=== PATIENT | male | born 1960 | race Caucasian/White ===

== ENCOUNTER 2017-02-14 18:38 | Emergency (ER) | payer OTHER ==
[~2017-02-14] VITALS: Ht 175.3 cm; Wt 90.7 kg
[~2017-02-14 18:38] MED LIST: AUGMENTIN 875875 M1 PO; NOHOMEMEDICATIONS; VICODIN 5-5001 EACH PO
[2017-02-14 19:07] LABS: CALCIUM 9.1 mg/dL (8.5-10.1); CREATININE 0.8 mg/dL (0.7-1.3)
[2017-02-14 20:11] VITALS: BP 176/116
== END 2017-02-14 20:10 | disposition home or self-care (01) ==
LOC: ER 18:38
PROVIDERS: Emergency Medicine
DX: R25.2 Cramp and spasm (principal); I10 Essential (primary) hypertension

== ENCOUNTER 2019-09-15 15:58 | Inpatient (IN) | payer OTHER ==
[~2019-09-15] VITALS: Ht 172.7 cm; Wt 71.4 kg
--- NOTE | ~2019-09-15 | EEG ---
[facility] [place] [address] [place] [address] ELECTROENCEPHALOGRAM Name: JOSE RALPH Room #: 351-P ADM IN M.R.#: [id number] Admission: 09/15/19 Attend Phys: Tri Yates MD Discharge: Date of : 62 Report #: [id number] THIS REPORT FOR: //name// CC: Tri Yates [facility] physician/PCP This patient is admitted with altered mental status. EEG is being done to further evaluate any etiology for that. The patient's EEG was done by placing the electrodes by standard 10-20 system of electrode placement. Both referential and sequential montages were used for recording. Background activity in this patient's EEG is about 10 Hz and 20 microvolt on the right side, the activity is asymmetrical. There is slowing on the left side. Some of the slowing is because of eye movements. Eye electrodes were placed and that did confirm that part of this is artifact, but part of it is real slowing, especially in the left temporoparietal area. No active epileptiform activity was noticed. The patient did become drowsy and that is associated with bilateral slowing. IMPRESSION: This is an abnormal EEG because it is asymmetrically slow on the left side. It is recommended that the patient be further worked up for any left hemispheric structural lesions. No active epileptiform activity was noticed during this record. Thank you very much for this referral. By: 1704 1810 Shaq Rice MD /saulo
[2019-09-15 16:20] VITALS: BP 127/101
[2019-09-15 16:39] LABS: ABSOLUTE NEUTROPHILS 4.3 thou/uL (1.4-8.2); BASOPHILS 0.4 % (0.0-2.0); HEMATOCRIT 52.5 % (42.0-52.0); HEMOGLOBIN 17.2 gm/dL (14.0-18.0); LYMPHOCYTES 32.4 % (24.0-44.0); MCH 27.9 pg (26.0-34.0); MCHC 32.8 g/dL (28.0-37.0); MONOCYTES 10.7 % (1.0-8.0); PLATELET COUNT 293 thou/uL (150-400); POLYS 54.5 % (36.0-66.0); RBC 6.18 mil/uL (4.50-6.00); RDW 16.2 % (10.5-14.5); WBC 7.9 thou/uL (4.0-11.0)
[2019-09-15 16:49] LABS: CALCIUM 9.1 mg/dL (8.5-10.1); CREATININE 0.9 mg/dL (0.7-1.3); POTASSIUM 4.3 mmol/L (3.5-5.1)
[2019-09-15 16:55] LABS: ALBUMIN 3.5 g/dL (3.4-5.0); TOTAL BILIRUBIN 0.9 mg/dL (<0.1-1.0); TOTAL PROTEIN 8.9 g/dL (6.4-8.2)
[2019-09-15 18:15] LABS: URINE BILIRUBIN NEGATIVE (Negative); URINE BLOOD NEGATIVE (Negative); URINE CLARITY CLEAR; URINE COLOR YELLOW; URINE GLUCOSE-RANDOM* NEGATIVE (Negative); URINE KETONES NEGATIVE (Negative); URINE LEUKOCYTES-REFLEX NEGATIVE (Negative); URINE NITRITE-REFLEX NEGATIVE (Negative); URINE PROTEIN (DIPSTICK) NEGATIVE (Negative); URINE UROBILINOGEN 0.2 E.U./dl (0.2-1.0)
[2019-09-15 18:26] VITALS: BP 171/118
[2019-09-15 19:11] VITALS: BP 153/105
[2019-09-16 00:41] VITALS: BP 131/91
--- NOTE | 2019-09-16 03:08 | NUR ---
PT ARRIVED TO ROOM 351 FROM ER, HR AFIB WITH RAT 80 TO 90'S WITH CARDIZEMM GTT @ 15ML/HR, LOADING DOSE OF VANCO STARTED, LAB HERE AND NEW COVID SENT TO ER AFTER 1ST TEST LOST, BP ELEVATED, NO C/O PAIN, PT ORIENTED TO NAME AND PLACE WITH EXPRESSIVE APHASIA HAS DIFFICULT TIME FINDING WORDS BECOMES VERY AGGITATED WITH MORE QUESTIONS, CONSULTS CALLED TO INFECTIOUS DISEASE AND CARDIOLOGY, THEY WILL SEE IN AM, PTS S.O. UPDATED ON CONDITION AND GIVEN PRIVACY CODE #, PT IN ISOLATION, EDUCATED AND GIVEN MEAL, WILL CON'T TO MONITOR PER PPOC.
[2019-09-16 03:55] LABS: ANION GAP 11 mmol/L (7-16); BUN 17 mg/dL (7-18); CALCIUM 8.1 mg/dL (8.5-10.1); CHLORIDE 106 mmol/L (98-107); CHOLESTEROL 88 mg/dL (<200); CO2 21 mmol/L (21-32); CREATININE 0.8 mg/dL (0.7-1.3); GLUCOSE 110 mg/dL (74-106); HDL CHOLESTEROL 26 mg/dL (>40); LDL CHOLESTEROL 48 mg/dL (<100); POTASSIUM 4.5 mmol/L (3.5-5.1); SODIUM 138 mmol/L (136-145); TC:HDL 3.4 Ratio (Not establshd); TRIGLYCERIDE 74 mg/dL (<150); VLDL 15 mg/dL (<40)
[2019-09-16 04:00] VITALS: BP 135/86
[2019-09-16 04:29] LABS: SERUM ASSESSMENT Slight Lipemia
[2019-09-16] MEDS ORDERED: BIKTARVY 50-201 EACH PO (05:07)
--- NOTE | 2019-09-16 08:00 | EKG ---
[facility] [place] [address] ELECTROCARDIOGRAM REPORT Name: LAWRENCEBENITAJOSE Angeles Room #: 351-P ADM IN M.R.#: [id number] Admission: 09/15/19 Attend Phys: Tri Yates MD Discharge: Date of : 62 Report #: [id number] THIS REPORT FOR: cc: FAM - No family physician/PCP FAM - No family physician/PCP Leandro Romano MD [facility] THIS REPORT FOR: //name// [facility] ED Test Date: 2019-09-15 Test Time: 17:25:23 Pat Name: JOSE RALPH Department: Room: [facility] Gender: M Fire Hazard Inspector: LAURIE : 1960 Requested By: Michael Ye Order Number: [id number] MD: Leandro Romano Measurements Intervals [place] Rate: 102 P: OK: QRS: 103 QRSD: 89 T: 76 QT: 358 QTc: 467 Interpretive Statements Atrial fibrillation Right axis deviation Nonspecific ST and T wave abnormality No previous ECG available for comparison Electronically Signed On 09-16-2019 7:58:15 CDT by Leandro Romano [email or web address] <ELECTRONICALLY SIGNED> By: Leandro Romano MD, FACC 09/16/19 0758 1725 1725 Leandro Romano MD, LOCATED WITHIN [facility] /EPI
--- NOTE | 2019-09-16 11:55 | NUR ---
INITIAL ASSESSMENT: OLGA reviewed chart and spoke with nursing and attending physician. Pt was admitted from home due to AMS/a-fib. Pt is in Enhanced Isolation to r/o COVID-19. Results pending at this time. Pt with hx of HIV. OLGA spoke with pt via phone. Pt was very short with his answers. Pt states that he lives at home with family. Prior to admission, pt was not using and DME. Pt states he has a PCP, but does not know the name of his physician or where the physician office is located. Pt reports he does not work, but thinks he may have health insurance. OLGA spoke with pt's s/o, Marialuisa, via phone to obtain info. Marialuisa states that pt goes to [facility] in the [facility]. Pt sees Rubi Sosa NP at [facility]. Per Marialuisa, pt has Home State or [place]-Medicaid. Pt normally goes to the [facility] in [place]. Pt has not been taking his antivirals because his physician's office have not called the pharmacy to verify pt's prescription for Biktarvy. Marialuisa states pt is normally independent with ADLs. Plan is for pt to discharge home when medically stable. Pt's family will be able to provide transportation. OLGA is following to assist as needed with discharge planning.
[2019-09-16 16:00] VITALS: BP 148/76
--- NOTE | 2019-09-16 17:42 | NUR ---
Dr. Elias in agreement to stop enhanced precautions and to transfer patient to 2N. Nursing trust evaluation supervisor informed patient needs to be on 2N.
--- NOTE | 2019-09-16 19:30 | NUR ---
PATIENT HAS BEEN QUITE RESTLESS THROUGH THE DAY. KEEP ATTEMPTING TO LEAVE THE BED. NOT EASILY REDIRECTED. LORAZEPAM ADMININSTERED AND IT SEEMED TO HAVE HAD THE OPPOSITE EFFECT PATIENT BECAME EVEN MORE RESTLESS. HALDOL ADMININSTERED AND IT WAS EFFECTIVE SHE IS NOW SLEEPING. RESPIRATIONS ARE LABORED WHEN SHE IS ATTEMPTING TO LEAVE THE BED. WILL CONT WITH PLAN OF CARE.
--- NOTE | 2019-09-16 19:42 | NUR ---
PATIENT SLEPT MOST OF THE MONRING AFTER HAVING BREAKFAST. THEN HE WOKE UP AND WAS LESS CONFUSED. HE HAD A SHOWER, AND COULD ANSWER QUESTIONS PROPERLY. HE DOES HOWVER HAVE LAPSED MEMORY. HE COULD NOT REMEMBER THE 'S PHONE NUMBER AND COULD NOT HAVE REMEMBER WHAT DAY IT WAS OR WHO THE PRESIDENT IS. GAIT IS STAEDY WHEN HE AMBULATES. WILL CONT WITH PLAN OF CARE.
[2019-09-16 19:44] VITALS: BP 172/119
[2019-09-16 22:03] LABS: AMP/METHAMP Negative (Negative); BARBITURATES Negative (Negative); BENZODIAZEPINES Negative (Negative); COCAINE Negative (Negative); METHADONE Negative (Negative); OPIATES Negative (Negative); PCP Negative (Negative)
[2019-09-17] VITALS (7 sets, daily range): BP systolic 130–148; BP diastolic 86–109
[2019-09-17 00:07] LABS: GLYCOHEMOGLOBIN (HGB A1C) 5.9 % (4.8-5.6)
--- NOTE | 2019-09-17 01:09 | NUR ---
PT HAS BEEN RELATIVELY AGREEABLE THIS ENTIRE SHIFT, PT APPEARS DAZED AT TIMES IF THE WORD IS AT THE TIP OF THE TONGUE BUT UNABLE TO GET IT OUT. PT IS STILL ALERT AND ORIENTED TO PERSON AND PLACE. PT DOES USE THE CALL LIGHT INAPPROPERIATELY BUT NOT IN AN EXCESSIVE WAY AT ALL. URINE TOXICOLOGY CAME BACK NEGATIVE, PT WAS PERSONALLY SEEN BY . IT IS UNCLEAR WHETHER THE PT IS ON ISOLATION PRECAUTIONS AT THIS TIME PER REPORT. PT'S VITAL SIGNS ARE NORMAL. HR MAINTAINING AROUND 90-110s. SPIKES IN HR ARE NOTABLE WHEN PT IS AMBULATING OR EXERTING ENERGY. IT IS OBSURD THE FREQUENCY AT WHICH THE PATIENT EATS/DRINKS. EVERY TIME THE RN GOES IN PT'S PRIMARY CONCERN IS EATING.. OTHER THAN THAT THE PT IS RELATIVELY CALM, COOPERATIVE, AND CONSOLABLE. WILL CONTINUE TO PROVIDE A SAFE SPACE FOR THIS PT HE IS RECOVERING TO BASELINE COGNITIVE LEVEL.
[2019-09-17 03:07] LABS: GLYCOHEMOGLOBIN (HGB A1C) 5.8 % (4.8-5.6)
[2019-09-17 09:29] LABS: CALCIUM 8.5 mg/dL (8.5-10.1); CREATININE 0.9 mg/dL (0.7-1.3); POTASSIUM 4.1 mmol/L (3.5-5.1)
--- NOTE | 2019-09-17 09:59 | NUR ---
SPOKE WITH DR KNIGHT SHE CONFIRMED THAT FLUIDS WERE DCD. ISOLATION DCD ALSO SPOKE WITH JOHANNE MADRIGAL WHO STATED ISO WAS DCD PT TO BE MOVED TO [address] [place] [address] SOON BED AVAILABLE. PT ALERT XS 3 ATE 2 BREAKFASTS IS DRINKING FLUIDS AND URINATING CLEAR YELLOW URINE ADEQUATE AMOUNT. SPOKE WITH PATIENT'S AND UPDATED HER ON PATIENT'S CONDITION AND PROGRESS.
--- NOTE | 2019-09-17 10:32 | NUR ---
PATIENT LEFT UNIT IN W/C WITH FACEMASK ON PT TO HAVE MRI OF BRAIN DONE ORDERED.
--- NOTE | 2019-09-17 12:07 | NUR ---
SW reviewed chart and spoke with nursing and attending physician. Pt's COVID-19 test came back negative. Pt to be transferred to CCU when a bed is available. Pt off the unit having MRI. [employer] to follow up with pt regarding Medicaid application. OLGA is following to assist as needed with discharge planning.
--- NOTE | 2019-09-17 12:50 | 2DMMODE ---
[facility] [place] [address] 2 D/M-MODE ECHOCARDIOGRAM Name: JOSE RALPH Room #: 351-P ADM IN .R.#: [id number] Admission: 09/15/19 Attend Phys: Tri Yates MD Discharge: Date of : 62 Report #: [id number] THIS REPORT FOR: cc: EPHRAIM - No family physician/PCP FAM - No family physician/PCP Leandro Romano MD [facility] ~ APPROVED REPORT Study performed: 09/17/2019 12:03:51 EXAM: Comprehensive 2D, Doppler, and color-flow Echocardiogram Patient Location: Bedside Room #: 351 Status: routine BSA: 1.80 HR: 97 bpm BP: 148/109 mmHg Rhythm: Atrial Fibrillation Other Information Study Quality: Good Indications Atrial Fibrillation Dyspnea Hypertension/HDD 2D Dimensions RVDd: 42.25 mm IVSd: 10.55 (7-11mm) LVOT Diam: 23.87 (18-24mm) LVDd: 50.47 mm PWd: 10.94 (7-11mm) Ascending Ao: 36.60 (22-36mm) LVDs: 41.09 (25-40mm) Aortic Root: 35.81 mm IVC: 18.00 mm Volumes Left Atrial Volume (Systole) Single Plane 4CH: 65.52 mL Single Plane 2CH: 75.04 mL LA ESV Index: 41.00 mL/m2 Aortic Valve AoV Peak Anival.: 1.10 m/s AO Peak Gr.: 4.88 mmHg LVOT Max P.36 mmHg LVOT Max V: 0.77 m/s [facility] [address] [address] 2 D/M-MODE ECHOCARDIOGRAM Name: JOSE RALPH Room #: 351-P [facility] IN [facility]#: [id number] Admission: 09/15/19 Attend Phys: Alejandro Marks Discharge: Date of : 62 Report #: [id number] CED Vmax: 3.11 cm2 Pulmonary Valve PV Peak Anival.: 0.65 m/s PV Peak Gr.: 1.67 mmHg Tricuspid Valve TR Peak Anival.: 2.40 m/s TR Peak Gr.: 23.02 mmHg PA Pressure: 28.00 mmHg Left Ventricle The left ventricle is normal size. There is global hypokinesis of the left ventricle. There is normal left ventricular wall thickness. Left ventricular systolic function is moderately decreased. LVEF 35-40%. This study is not technically sufficient to allow evaluation of the LV diastolic function due to atrial fibrillation. Right Ventricle Right ventricle is at the upper limits of normal. The right ventricular systolic function is normal. Atria Left atrium is dilated. Right atrium is dilated. Aortic Valve The aortic valve is normal in structure. No aortic regurgitation is present. There is no aortic valvular stenosis. Mitral Valve The mitral valve is normal in structure. Mild to moderate mitral regurgitation. No evidence of mitral valve stenosis. Tricuspid Valve The tricuspid valve is normal in structure. There is mild tricuspid regurgitation. Estimated PAP 28 mmHg. There is no pulmonary hypertension. Pulmonic Valve The pulmonary valve is normal in structure. Trace pulmonic regurgitation. Great Vessels The aortic root is normal in size. IVC is normal in size and collapses >50% with inspiration. Pericardium [facility] [address] [place] [address] 2 D/M-MODE ECHOCARDIOGRAM Name: JOSE RALPH Room #: 351-P [facility] IN ..#: [id number] Admission: 09/15/19 Attend Phys: Alejandro Marks Discharge: Date of : 62 Report #: [id number] There is no pericardial effusion. <Conclusion> Left ventricular systolic function is moderately decreased. There is global hypokinesis of the left ventricle. LVEF 35-40%. Both atria are dilated. The aortic valve is normal in structure. No aortic regurgitation is present. The mitral valve is normal in structure. Mild to moderate mitral regurgitation. There is mild tricuspid regurgitation. Estimated pulmonary artery pressure 28 mmHg. There is no pericardial effusion. <ELECTRONICALLY SIGNED> By: Leandro Romano MD, [facility] 09/17/19 1248 1248 1248 Leandro Romano MD, FACC /INF
--- NOTE | 2019-09-17 13:15 | NUR ---
CALLED DR SAUL NEURO AND READ RESULTS OF MRI ALSO CALLED MARICEL JENKINS ANP PER DR IBARRA. DR SAUL TO DC ENOXAPRIN AND START ELIQUIS. ALSO DR KNIGHT WANTS DEBRA CARODID DOPPLER TEST DONE
--- NOTE | 2019-09-17 17:01 | NUR ---
PT RESTING IN BED IS HAVING DOPPLER XS 2 DONE AT THIS TIME. PT STATES NO PAIN. AWAITING DINNER. PT TO MOVE TO [address] [place] [address] SOON ROOM IS READY. CONT ON TELE MONITORING. PLEASANT AND COOPERATIVE WITH CARE.
--- NOTE | 2019-09-17 18:26 | NUR ---
REPORT GIVEN TO 2-N NURSE CHASE AND THEN PATIENT TRANSFERRED TO ROOM 216. ALL BELONGINGS TRANSFERRED. PT HAD DINNER BEFORE TRANSFER. PT HAD DOPPLER DONE BEFORE TRANSFER. CALLED WHEN PATIENT WAS TRANSFERRED. PATIENT SPOKE WITH HIS . TELE MONITOR REMOVED BEFORE TRANSFER.
[2019-09-18 03:11] VITALS: BP 145/90
--- NOTE | 2019-09-18 03:23 | NUR ---
ASSUMED PT CARE AROUND 1930. VSS. AXOX3. CALM AND COOERATIVE TO CARE. NO S/S ACUTE DISTRESS NOTED OR REPORTED AT THIS TIME. WILL CONT TO MONITOR FOR ANY CHANGES IN CONDITION.
[2019-09-18 05:58] LABS: POTASSIUM 4.5 mmol/L (3.5-5.1)
[2019-09-18 06:08] LABS: THYROID STIMULATING IG 2.45 IU/L (0.00-0.55)
[2019-09-18 08:00] VITALS: BP 152/96
[2019-09-18 08:08] LABS: HEPATITIS B SURFACE AG Negative (Negative); HEPATITIS C VIRUS AB <0.1 (0.0-0.9)
--- NOTE | 2019-09-18 11:13 | HC ---
[facility] [place] [address] [place] [address] CONSULTATION Name: JOSE RALPH Room #: 216-P ADM IN M.R.#: [id number] Admission: 09/15/19 Attend Phys: Tri Yates MD Discharge: Date of : 62 Report #: [id number] THIS REPORT FOR: cc: EPHRAIM Meade family physician/PCP EPHRAIM Meade family physician/PCP Boogie Lynn MD ~ CC: Tri YE physician/PCP DATE OF SERVICE: 09/17/2019 ENDOCRINE CONSULTATION CONSULTING PHYSICIAN: Dr. Lopez. REASON FOR CONSULTATION: Hyperthyroidism. HISTORY OF PRESENT ILLNESS: This is a 59-year-old male patient whose medical background is significant for multiple medical issues including hypertension, HIV positive state who presented a few days ago with complaints of weakness, confusion and overall fatigue. The patient was admitted for further care and monitoring and went on COVID-19 rule out protocol. During his admission, the patient was evaluated with multiple laboratory testing including thyroid function studies and was found to have hyperthyroidism. On further questioning, the patient denies having had any prior knowledge of thyroid disease and does not recall having been actively treated for any thyroid disease. He does, however, point out to the increasing occurrence of palpitations without chest pain, but not tremors. Also, he notes more subjective sense of heat intolerance and sweating. He has lost 20 pounds over the past several months unintentionally. He has been a bit more anxious. The patient does not have active difficulties with neck fullness, pain, compressive symptoms or voice changes. Interestingly, the patient has a background of atrial fibrillation as well. REVIEW OF SYSTEMS: CONSTITUTIONAL: Fatigue, tiredness, unexplained weight loss of 20 pounds over the past 3-6 months. No fever. HEENT: Negative for sore throat, sinus pain, ear drainage. PULMONARY: Occasional shortness of breath and cough, but no hemoptysis. CARDIAC: Palpitations, lightheadedness, but not syncope or chest pain. GASTROINTESTINAL: Negative for nausea, vomiting, changes in bowel movement frequency. NEUROLOGY: Negative for loss of consciousness, severe frequent headaches or seizure activity. [facility] [address] [place] [address] CONSULTATION Name: LOREEJOSE Karthik Room #: 216-P [facility] IN .R.#: [id number] Admission: 09/15/19 Attend Phys: Tri Yates MD Discharge: Date of : 62 Report #: [id number] DERMATOLOGY: Negative for rash, ulceration or discoloration. Otherwise, review of systems noncontributory other than those mentioned in HPI. PAST MEDICAL HISTORY: 1. Hypertension. 2. Human immunodeficiency virus positive. 3. Atrial fibrillation. OUTPATIENT MEDICATIONS: None at home. ALLERGIES: No known drug allergies. FAMILY HISTORY: Noncontributory. SOCIAL HISTORY: The patient denies the active use of alcohol or illicit drugs. He does smoke daily. PHYSICAL EXAMINATION: GENERAL: male patient who is not in apparent pain or distress, but appears somewhat tired. VITAL SIGNS: Blood pressure 148/109 mmHg, heart rate is 85 beats per minute, respirations 20 per minute, temperature 36.6 degrees Celsius. PSYCH: The patient is lying in bed, appears tired, but not in acute pain or distress. HEENT: Anicteric sclerae. Intact ocular motions. NECK: Supple, without JVD, carotid bruits, I do not appreciate thyromegaly. CHEST: Noted for moderate entry bilaterally with scattered rales, but not rhonchi. HEART: Irregularly irregular without murmurs or gallops. ABDOMEN: Soft, lax. No guarding. Active bowel sounds. EXTREMITIES: Lower extremity exam is negative for ankle edema, skin breaks or ulcerations. NEUROLOGIC: Awake, alert and oriented to time, place and person. The remainder of his examination is nonfocal. PSYCHIATRIC: Interactive. Normal mood and affect. LABORATORY DATA: Initial blood glucose was at 192, later dropped to 121. Otherwise, sodium 134, potassium 4.1, chloride 101, CO2 of 25, anion gap 8, BUN 21, creatinine 0.9, AST 29, total bilirubin 0.9, calcium 8.5, alkaline phosphatase 219, ALT 30, total protein 8.9, albumin 3.5, EGFR 87. Lactic acid 1.1, troponin 0.67. Total cholesterol 88, triglycerides 74, HDL 26, LDL 48. BNP 9222. Free T4 2.4. Free T3 7.44. CRP 19.2. White blood count 7.9, hemoglobin 17.2, hematocrit 52.5, platelets 293. TSH is undetectable. Vitamin B12 is 441. Hemoglobin A1c is 5.8. An MRI of the head was done and shows evidence of a subacute ischemic infarct in [address] [address] CONSULTATION Name: JOSE RALPH Room #: 216-P [facility] IN M.R.#: [id number] Admission: 09/15/19 Attend Phys: Tri Yates MD Discharge: Date of : 62 Report #: [id number] the left parietal lobe in addition to cerebral white matter signal changes most compatible with chronic microvascular ischemia with a focus of encephalomalacia in the right parietal lobe, most compatible with chronic infarct. A CT scan of the chest was done and was negative for features suggestive of pulmonary embolism, but with mild cardiomegaly and extensive coronary artery calcification. ASSESSMENT AND PLAN: 1. Hyperthyroidism. The patient was found to have significantly suppressed TSH, which was later on showed to associate with significantly elevated free T4 and free T3 collectively pointing out to tangible hyperthyroidism. Clinically, he has experienced symptoms that certainly go along those lines in terms of weight loss, palpitations and heat intolerance. The patient was counseled about these findings as well as about their implication. I would at the present time attempt to identify the etiology behind this hyperthyroidism and in doing so, I have requested serology studies including thyroid stimulating immunoglobulins and thyroid peroxidase antibodies. A thyroid ultrasound might be needed or will be needed as well and I will order that too. In the meantime given the significant elevation of free T4 and the association with atrial fibrillation, I will start methimazole therapy at a dose of 10 mg b.i.d. while we obtain the remaining information that are necessary for his workup. 2. Prediabetes mellitus. The patient had an elevated blood glucose value on presentation, which normalized without intervention. His hemoglobin A1c of 5.8 falls just within the onset of prediabetic range. This would be best addressed by diet and exercise measures going forward. I do not see a need to maintain routine blood glucose monitoring while he is here in the hospital. 3. Confusion, altered mental status. The patient is being worked up for the issue of encephalopathy and Neurology is actively evaluating his condition. A recent MRI was compatible with subacute infarct in the parietal lobe. Further workup and management is as per Neurology. I certainly appreciate this consultation by Dr. Pandhi. <ELECTRONICALLY SIGNED> By: Boogie Lynn MD 09/18/19 1113 1146 1348 Boogie Lynn MD /nt
--- NOTE | 2019-09-18 12:30 | NUR ---
PT ASSESSED AT START OF SHIFT. PT W/ VERY SLOW MENTATION AND FORGETFULNESS. NOT AWARE HE WAS IN THE HOSPITAL. MOVES ALL EXTREMITIES. EATING WELL. NO C/O PAIN. IN AFIB AND HAVING PERIODS OF INCREASED TACHYCARDIA NONSUSTAINED. RATES OVER 160 AT TIMES. CARDIAC MANAGER VALIDATION NOTIFIED AND ORDERS OBTAINED AT THIS TIME TO START CARDIZEM GTT. CARE TRANSFERRED TO DUMBWAITER OPERATOR.
[2019-09-18 12:56] VITALS: BP 133/104
[2019-09-18 13:00] VITALS: BP 139/89
--- NOTE | 2019-09-18 15:22 | NUR ---
Case discussed with the care team. Pt now on cardezim gtt for heart rate control and possible new subacute stroke. Neuro following. Pt's sign other Marialuisa indicates she has submitted documentation along with [place]. [employer] referral is pending. The pt would likely qualify for social security disablity francisco with his hx and new cardiac and neuro dx. [employer] to call Marialuisa to facilitate. The pt was recently released from correction in June and his [place] had [place] prior to his release. Marialuisa indicates that all of his f/u is through [facility]. He was originally denies SS disablity a couple of years ago but would benefit from reapplying due to his current medical issues. Will ask for PT/OT/ST and 5N evals. He is normally indep with gait, adl's and able to converse appropriately.
[2019-09-18 19:24] VITALS: BP 112/86
--- NOTE | 2019-09-18 21:18 | NUR ---
ASSUMED CARE OF PATIENT AT 1300 FROM CARMEN FINLEY. PATIENT'S HEART RATE IN AFIB AND FLUCTUATING FROM 100-180, HR BEGAN TO SUSTAIN IN THE 160'S. CARDIOLOGY CALLED. ORDER STARTED FOR CARDIZEM DRIP. PATIENT STARTED AT 10 AND TITRATED TO 5 AND THEN D/C ALL TOGETHER AT 1650, DUE TO HR IN THE 50'S. NOTED IN MEDITECH. PATIENT DENIES ANY CHEST PAIN. PATIENT TO CONTINUE WITH POC.
[2019-09-19 04:43] VITALS: BP 125/72
--- NOTE | 2019-09-19 07:42 | EKG ---
[facility] [place] [address] ELECTROCARDIOGRAM REPORT Name: LOREEJOSE T Room #: 216-P ADM IN M.R.#: [id number] Admission: 09/15/19 Attend Phys: Tri Yates MD Discharge: Date of : 62 Report #: [id number] THIS REPORT FOR: cc: EPHRAIM - No family physician/PCP EPHRAIM - No family physician/PCP Leandro Romano MD [facility] THIS REPORT FOR: //name// [facility] Test Date: 2019-09-18 Test Time: 10:20:04 Pat Name: JOSE RALPH Department: Room: 216 P Gender: M Hide Tanner: Pratima GREEN : 1960 Requested By: Anuradha Nguyễn Order Number: [id number] MD: Leandro Romano Measurements Intervals [place] Rate: 96 P: ND: QRS: 92 QRSD: 97 T: 176 QT: 330 QTc: 417 Interpretive Statements Atrial fibrillation Borderline right axis deviation Repol abnrm suggests ischemia, anterolateral Compared to ECG 09/15/2019 17:25:23 ST and T wave abnormality is more pronounced Electronically Signed On 09-19-2019 7:41:09 CDT by Leandro Romano [email or web address] <ELECTRONICALLY SIGNED> By: Leandro Romano MD, [facility] 09/19/19 0741 1020 1020 Leandro Romano MD, FAC /EPI
[2019-09-19 07:50] VITALS: BP 131/96
--- NOTE | 2019-09-19 07:56 | NUR ---
PT SLEEPING ON AND OFF THRU THE NOC, A&OX3, USES URINAL, SHOWERED, VSS, NO C/O PAIN, WILL CON'T TO MONITOR PER PPOC.
[2019-09-19] MEDS ORDERED: METHIMAZOLE10 MG PO (08:24)
[2019-09-19] MEDS ORDERED: LISINOPRIL40 MG PO (08:24)
[2019-09-19] MEDS ORDERED: ASPIR 8181 MG PO (08:24)
[2019-09-19] MEDS ORDERED: LOPRESSOR100 M1 PO (08:24)
[2019-09-19] MEDS ORDERED: ELIQUIS5 MG PO (08:24)
[2019-09-19] MEDS ORDERED: BIKTARVY 50-201 EACH PO (10:37)
[2019-09-19] MEDS ORDERED: KEPPRA 500 MG500 M1 PO (10:37)
[2019-09-19 11:00] VITALS: BP 130/83
[2019-09-19 12:08] LABS: CD3 % 78.3 % (57.5-86.2); CD3 ABSOLUTE 1566 /uL (622-2402); CD4 % 36.9 % (30.8-58.5); CD4 ABSOLUTE 738 /uL (359-1519); CD4:CD8 0.92 (0.92-3.72); CD8 % 39.9 % (12.0-35.5); CD8 ABSOLUTE 798 /uL (109-897)
[2019-09-19 14:00] VITALS: BP 130/83
[2019-09-19 14:08] LABS: SYPHILIS AB Reactive (Non Reactive)
--- NOTE | 2019-09-19 14:10 | NUR ---
Pt dcing home today. Pt cleared by therapy and acute rehab for dc to home with outpt followup. The attending has spoken with the pt's sign other regarding recommendations for 24hr supervision and assist with meds. Pt to f/u with his pcp at [facility] as soon as possible. Copy of the pt's rehab evals and dc summary provided for sign other to take to f/u appts. She will be picking him up around 8pm this evening.
[2019-09-19 14:13] VITALS: BP 130/83
--- NOTE | 2019-09-19 14:49 | NUR ---
5N CONSULT RECEIVED FOR THIS Pt. Pt SEEN BY GREGG JOHN NP. PT HAS SIGNED OFF ON Pt Pt IS HIGH LEVEL. PER GREGG, Pt DOES NOT MEET 5N REHAB CRITERIA AND RECOMMENDS D/C HOME WITH 'S SUPERVISION. PLAN IS FOR Pt TO D/C HOME LATER TODAY. THANK YOU FOR THIS CONSULT.
[2019-09-19 15:40] VITALS: BP 131/98
--- NOTE | 2019-09-19 18:07 | NUR ---
ASSUMED CARE 0700, ALERT X3 WITH FORGETFULNESS. REQUIRES RE-ORRIENTATION. VOIDS C URINAL. STAND BY ASSIST. DENIES PAIN, DENIES SOB. DC HOME WITH 04/12 CARE WITH . REVIEW DC PAPERS AND NEW MEDICATIONS WITH . IV AND TELE REMOVED.
== END 2019-09-19 18:02 | disposition home or self-care (01) | DRG 871 ==
LOC: ER 15:58 → EROBS 17:54 → 3W 17:54 → 2N 09-17 18:13
PROVIDERS: Emergency Medicine; Internal Medicine; Psychiatry & Neurology Neurology; Specialist; ADMIT Hospitalist
DX: A41.9 Sepsis, unspecified organism (principal); G93.41 Metabolic encephalopathy; I21.4 Non-ST elevation (NSTEMI) myocardial infarction; I63.9 Cerebral infarction, unspecified; E87.2 Acidosis; I10 Essential (primary) hypertension; I48.91 Unspecified atrial fibrillation; E21.3 Hyperparathyroidism, unspecified; R73.03 Prediabetes; R73.9 Hyperglycemia, unspecified; E05.90 Thyrotoxicosis, unspecified without thyrotoxic crisis or storm; I50.9 Heart failure, unspecified; F03.90 Unspecified dementia, unspecified severity, without behavioral disturbance, psychotic disturbance, mood disturbance, and anxiety; I25.5 Ischemic cardiomyopathy; Z91.19 Patient's noncompliance with other medical treatment and regimen; Z79.82 Long term (current) use of aspirin; Z79.899 Other long term (current) drug therapy; Z03.818 Encounter for observation for suspected exposure to other biological agents ruled out
CPT/HCPCS: 10081; 10879

== ENCOUNTER 2020-01-05 20:52 | Emergency (ER) | payer OTHER ==
[~2020-01-05] VITALS: Ht 175.3 cm; Wt 72.6 kg
[~2020-01-05 20:52] MED LIST changes: +ASPIR 8181 MG PO; +BIKTARVY 50-201 EACH PO; +ELIQUIS5 MG PO; +KEPPRA 500 MG500 M1 PO; +LISINOPRIL40 MG PO; +LOPRESSOR100 M1 PO; +METHIMAZOLE10 MG PO
[2020-01-05] MEDS ORDERED: XARELTO15 MG PO (21:09)
[2020-01-05] MEDS ORDERED: ATORVASTATIN CA80 MG PO (21:09)
[2020-01-05] MEDS ORDERED: CLOPIDOGREL75 MG PO (21:09)
[2020-01-05] MEDS ORDERED: IMDUR 30 MG TAB30 M1 PO (21:09)
[2020-01-05] MEDS ORDERED: INDERAL 20 MG T20 M1 PO (21:10)
[2020-01-05] MEDS ORDERED: AUGMENTIN 875-1 EACH PO (22:16)
[2020-01-05] MEDS ORDERED: TRAMADOL 50 MG50 MG PO (22:16)
[2020-01-05 22:29] VITALS: BP 119/95
== END 2020-01-05 22:31 | disposition home or self-care (01) ==
LOC: ER 20:52
DX: S61.452A Open bite of left hand, initial encounter (principal); L03.114 Cellulitis of left upper limb; I10 Essential (primary) hypertension; I48.91 Unspecified atrial fibrillation; F17.200 Nicotine dependence, unspecified, uncomplicated; Z79.899 Other long term (current) drug therapy; Z79.82 Long term (current) use of aspirin; W54.0XXA Bitten by dog, initial encounter; Y93.89 Activity, other specified; Y92.89 Other specified places as the place of occurrence of the external cause; Y99.9 Unspecified external cause status

== ENCOUNTER 2020-08-29 00:10 | Emergency (ER) | payer OTHER ==
[~2020-08-29] VITALS: Ht 175.3 cm; Wt 85.2 kg
[~2020-08-29 00:10] MED LIST changes: +ATORVASTATIN CA80 MG PO; +AUGMENTIN 875-1 EACH PO; +CLOPIDOGREL75 MG PO; +IMDUR 30 MG TAB30 M1 PO; +INDERAL 20 MG T20 M1 PO; +TRAMADOL 50 MG50 MG PO; +XARELTO15 MG PO
[2020-08-29] MEDS ORDERED: LASIX 40 MG TAB40 MG PO (00:27)
[2020-08-29] MEDS ORDERED: ELIQUIS5 MG PO (00:27)
[2020-08-29 00:28] LABS: BASOPHILS 0.8 % (0.0-2.0); EOSINOPHILS 4.7 % (0.0-3.0); HEMATOCRIT 49.1 % (42.0-52.0); HEMOGLOBIN 16.3 gm/dL (14.0-18.0); LYMPHOCYTES 34.5 % (24.0-44.0); MCH 31.7 pg (26.0-34.0); MCHC 33.3 g/dL (28.0-37.0); MCV 95.2 fL (80.0-100.0); MONOCYTES 9.8 % (1.0-8.0); PLATELET COUNT 255 thou/uL (150-400); POLYS 50.2 % (36.0-66.0); RBC 5.16 mil/uL (4.50-6.00); RDW 14.6 % (10.5-14.5)
[2020-08-29] MEDS ORDERED: TOPROL XL100 MG PO (00:30)
[2020-08-29 00:33] LABS: ANION GAP 12 mmol/L (7-16); BUN 15 mg/dL (7-18); CALCIUM 8.7 mg/dL (8.5-10.1); CHLORIDE 106 mmol/L (98-107); CO2 25 mmol/L (21-32); CREATININE 1.1 mg/dL (0.7-1.3); GLUCOSE 111 mg/dL (74-106); POTASSIUM 4.1 mmol/L (3.5-5.1); SODIUM 143 mmol/L (136-145)
[2020-08-29 00:43] LABS: ALBUMIN 3.2 g/dL (3.4-5.0); DIRECT BILIRUBIN < 0.1 mg/dL (<0.1-0.2); SGOT 23 U/L (15-37); SGPT 24 U/L (30-65); TOTAL BILIRUBIN 0.5 mg/dL (0.2-1.0); TOTAL PROTEIN 7.3 g/dL (6.4-8.2)
[2020-08-29 00:51] LABS: APTT 26.1 Seconds (24.5-32.8); INR 1.14; PROTIME 12.4 Seconds (9.3-11.4)
[2020-08-29 01:19] LABS: URINE BILIRUBIN NEGATIVE (Negative); URINE BLOOD NEGATIVE (Negative); URINE CLARITY CLEAR; URINE COLOR YELLOW; URINE GLUCOSE-RANDOM* NEGATIVE (Negative); URINE KETONES NEGATIVE (Negative); URINE LEUKOCYTES-REFLEX NEGATIVE (Negative); URINE NITRITE-REFLEX NEGATIVE (Negative); URINE PROTEIN (DIPSTICK) NEGATIVE (Negative); URINE SPECIFIC GRAVITY >= 1.030 (1.005-1.035); URINE UROBILINOGEN 0.2 E.U./dl (0.2-1.0)
[2020-08-29 05:05] VITALS: BP 138/108
--- NOTE | 2020-08-30 09:35 | EKG ---
[facility] [place] [address] ELECTROCARDIOGRAM REPORT Name: JOSE RALPH [facility] [id number] Admission: 08/29/20 Attend Phys: Discharge: 08/29/20 Date of : 62 Report #: [id number] [facility] ED Test Date: 2020-08-29 Test Time: 03:12:19 Pat Name: JOSE RALPH Department: Room: Gender: M Operations Dispatcher: TARA : 1960 Requested By: Fadia Louise Order Number: [id number] MD: Leandro Romano Measurements Intervals [place] Rate: 95 P: [place]: QRS: 107 QRSD: 101 T: 49 QT: 387 QTc: 487 Interpretive Statements Atrial fibrillation Ventricular premature complex Right axis deviation Nonspecific ST segment abnormality Borderline prolonged QT interval Compared to ECG 09/18/2019 10:20:04 Ventricular premature complex(es) now present ST and T wave abnormalities less pronounced Electronically Signed On 08-30-2020 9:35:45 CDT by Leandro Romano [email or web address] <ELECTRONICALLY SIGNED> By: Leandro Romano MD, [facility] 08/30/20 0935 1 1 Leandro Romano MD, [facility] /EPI
== END 2020-08-29 05:00 | disposition short-term general hospital (02) ==
LOC: ER 00:10
PROVIDERS: Emergency Medicine
DX: I63.9 Cerebral infarction, unspecified (principal); I10 Essential (primary) hypertension; I48.91 Unspecified atrial fibrillation; Z79.01 Long term (current) use of anticoagulants; Z79.899 Other long term (current) drug therapy

== ENCOUNTER 2020-10-08 01:14 | Emergency (ER) | payer OTHER ==
[~2020-10-08] VITALS: Ht 172.7 cm; Wt 72.6 kg
[~2020-10-08 01:14] MED LIST changes: +LASIX 40 MG TAB40 MG PO; +TOPROL XL100 MG PO
[2020-10-08 02:18] VITALS: BP 146/102
[2020-10-08] MEDS ORDERED: CLEOCIN HCL150 MG PO (02:19)
== END 2020-10-08 02:40 | disposition home or self-care (01) ==
LOC: ER 01:14
DX: S63.591A Other specified sprain of right wrist, initial encounter (principal); S50.01XA Contusion of right elbow, initial encounter; I10 Essential (primary) hypertension; I48.91 Unspecified atrial fibrillation; F17.200 Nicotine dependence, unspecified, uncomplicated; Z79.01 Long term (current) use of anticoagulants; Z79.899 Other long term (current) drug therapy; Z86.73 Personal history of transient ischemic attack (TIA), and cerebral infarction without residual deficits; W18.30XA Fall on same level, unspecified, initial encounter; Y93.89 Activity, other specified; Y92.89 Other specified places as the place of occurrence of the external cause; Y99.9 Unspecified external cause status